=== PATIENT | female | born 1995 | race Caucasian/White ===

== ENCOUNTER 2021-04-02 17:45 | Emergency (ER) | payer OTHER ==
[~2021-04-02 17:45] MED LIST: COLACE 100MG C100 MG PO; COLACE100 MG PO; DIFLUCAN150 MG PO; IBUPROFEN600 MG PO; NORCO 5-325 TA1 EACH PO; PHENERGAN 12.12.5 M1 PO; PRENATAL TABLE1 EAC1 PO; ZOFRAN4 MG PO
[2021-04-02 20:35] LABS: HEMOGLOBIN 13.9 gm/dl (12.3-15.3); RED BLOOD COUNT 4.68 M/UL (4.00-5.10)
[2021-04-02 21:08] LABS: BUN/CREATININE RATIO 10 (0-10)
== END 2021-04-02 22:33 | disposition home or self-care (01) ==
LOC: ER1 17:45
PROVIDERS: Physician Assistant
DX: R07.81 Pleurodynia (principal); Z91.040 Latex allergy status; Z20.822 Contact with and (suspected) exposure to COVID-19
CPT/HCPCS: 71045; 80053; 81001; 82550; 82553; 83874; 84484; 84703; 85025; 85379; 87086; 93005; 99285; Q9967; U0002

== ENCOUNTER 2021-05-07 03:06 | Emergency (ER) | payer OTHER | END 2021-05-07 05:03 | disposition home or self-care (01) | LOC: ER1 03:06 | DX: J06.9 Acute upper respiratory infection, unspecified (principal); R07.9 Chest pain, unspecified; Z20.822 Contact with and (suspected) exposure to COVID-19 | CPT/HCPCS: 71045; 93005; 99283; U0002 ==

== ENCOUNTER 2021-05-09 15:22 | Emergency (ER) | payer OTHER | END 2021-05-09 18:55 | disposition left against medical advice (07) | LOC: ER1 15:22 | DX: Z53.21 Procedure and treatment not carried out due to patient leaving prior to being seen by health care provider (principal) ==

== ENCOUNTER 2021-05-11 18:18 | Emergency (ER) | payer OTHER ==
[2021-05-11 20:26] LABS: HEMOGLOBIN 14.3 gm/dl (12.3-15.3); RED BLOOD COUNT 4.74 M/UL (4.00-5.10)
[2021-05-11 20:47] LABS: BUN/CREATININE RATIO 16 (0-10)
[2021-05-12] MEDS ORDERED: IBUPROFEN600 MG PO (00:42)
== END 2021-05-12 01:19 | disposition home or self-care (01) ==
LOC: ER1 18:18
PROVIDERS: Physician Assistant
DX: R07.9 Chest pain, unspecified (principal); R06.02 Shortness of breath; Z20.822 Contact with and (suspected) exposure to COVID-19
CPT/HCPCS: 71045; 80053; 85025; 99285; U0002

== ENCOUNTER 2021-05-18 17:06 | Emergency (ER) | payer OTHER ==
[2021-05-18 18:18] LABS: HEMOGLOBIN 13.4 gm/dl (12.3-15.3); RED BLOOD COUNT 4.43 M/UL (4.00-5.10); WHITE BLOOD COUNT 8.9 K/UL (4.5-11.0)
[2021-05-18] MEDS ORDERED: BENTYL 20MG TAB20 MG PO (20:07)
[2021-05-18] MEDS ORDERED: ZOFRAN ODT 4 MG4 MG SL (20:07)
== END 2021-05-18 20:33 | disposition home or self-care (01) ==
LOC: ER1 17:06
PROVIDERS: Physician Assistant
DX: R10.31 Right lower quadrant pain (principal); R10.11 Right upper quadrant pain; I25.10 Atherosclerotic heart disease of native coronary artery without angina pectoris; F17.210 Nicotine dependence, cigarettes, uncomplicated; Z90.49 Acquired absence of other specified parts of digestive tract; Z88.0 Allergy status to penicillin; Z88.6 Allergy status to analgesic agent; Z20.822 Contact with and (suspected) exposure to COVID-19
CPT/HCPCS: 80053; 81001; 83690; 84703; 85025; 87086; 99284

== ENCOUNTER 2021-06-08 08:53 | Emergency (ER) | payer OTHER ==
[~2021-06-08 08:53] MED LIST changes: +BENTYL 20MG TAB20 MG PO; +ZOFRAN ODT 4 MG4 MG SL
[2021-06-08 10:09] LABS: HEMOGLOBIN 13.7 gm/dl (12.3-15.3); RED BLOOD COUNT 4.63 M/UL (4.00-5.10); WHITE BLOOD COUNT 6.5 K/UL (4.5-11.0)
[2021-06-08 10:29] LABS: BUN/CREATININE RATIO 16 (0-10)
== END 2021-06-08 11:40 | disposition home or self-care (01) ==
LOC: ER1 08:53
PROVIDERS: Physician Assistant
DX: R10.32 Left lower quadrant pain (principal); R11.10 Vomiting, unspecified
CPT/HCPCS: 80053; 81001; 83690; 84703; 85025; 99284; Q9967

== ENCOUNTER → 2021-06-09 | Emergency (ER) | payer OTHER | END | disposition left against medical advice (07) | LOC: ER1 12:52 | DX: R10.12 Left upper quadrant pain (principal) | CPT/HCPCS: 99283 ==